=== PATIENT | female | born 1960 | race Caucasian/White ===

== ENCOUNTER 2021-09-04 08:28 | Day surgery (SDC) | payer OTHER, SELFPAY ==
[2021-08-27 07:59] VITALS: BMI 33.3
[2021-09-04] VITALS (13 sets, daily range): BP systolic 111–137; BP diastolic 60–80; PULSE 52–103; RESP 11–19; TEMP 35.7–37.1; O2SAT 93–99; BMI 33.3
[2021-09-04] MEDS: CELECOXIB 200 MG CAPSULE PO (09:14)
[2021-09-04] MEDS: PREGABALIN 75 MG CAPSULE PO (09:14)
[2021-09-04] MEDS: ACETAMINOPHEN 325 MG TABLET 975 MG PO (09:14)
[2021-09-04] MEDS: LACTATED RINGERS 1,000 ML 84 ML IV ×2 (09:25→12:00)
--- NOTE | 2021-09-04 09:28 | SUR.PREOP ---
Pt declines warm blanket/bear hugger
[2021-09-04 09:29] LABS: COVID19 -Nasal RAPID Negative (Negative)
[2021-09-04] MEDS: VANCOMYCIN 1,000 MG/200 ML PIGGYBACK 200 MG IV (09:47)
--- NOTE | 2021-09-04 10:48 | PM.PREOP ---
Pre-operative Note COVID-19 COVID-19 status: Negative Interval Note History & Physical reviewed/Exam performed by Physician: Yes Changes to H&P: No
[2021-09-04] MEDS: CEFAZOLIN 2 GM/20 ML SYRINGE IV ×2 (11:00→18:48)
--- NOTE | 2021-09-04 11:35 | SUR.OPER ---
Lateral on padded OR bed. Gel axillary roll. Arms secured on padded armboard with pillow supporting top arm. Padded hip positioner braces x4 - anterior and posterior chest and pelvis. Additional gel pad used anterior pelvis. Gel pad under bottom leg from knee to foot and secured with tape over sheet.
--- NOTE | 2021-09-04 11:56 | SUR.OPER ---
1 ML EPINEHRINE IN 50 ML NACL TO SOAK VAGINAL PACKING FOR FEMORAL CANAL
[2021-09-04] MEDS: SODIUM CHLORIDE IRRIG SOLUTION 250 ML, POVIDONE-IODINE SPONGE STICKS 1 APPLIC IRR (12:45)
[2021-09-04] MEDS: BUPIVACAINE 0.25% (PF) 60 ML, EPINEPHrine 0.3 MG INJ (13:00)
[2021-09-04] MEDS: BUPIVACAINE LIPOSOME 266 MG/20 ML VIAL INJ (13:00)
--- NOTE | 2021-09-04 13:30 | DI.RAD.S_ITS ---
PROCEDURE: XR HIP W PEL IF DONE RT 2V INDICATIONS: RT TOTAL HIP TECHNIQUE: AP pelvis and lateral view of the right hip acquired. COMPARISON: None. FINDINGS: Bones: Patient is status post right hip arthroplasty, with hardware components in expected positions. The hip joint appears congruent. The visualized bony structures appear intact. Soft tissues: Overlying postoperative changes are noted. No suspicious soft tissue densities. IMPRESSION: Postsurgical changes from right total hip arthroplasty with anatomic right hip alignment. Dictated by: Bernard Tristan M.D. on 09/04/2021 at 15:30 Approved by: Bernard Tristan M.D. on 09/04/2021 at 15:30
--- NOTE | 2021-09-04 13:46 | SUR.PHASEI ---
Stable pacu stay, pt denied pain, nausea. I am exhausted
--- NOTE | 2021-09-04 13:57 | P.OP_ITS ---
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 Non-operative management has failed and the patient has requested total hip replacement. The risks, benefits and alternatives to surgery were discussed with the patient prior to proceeding. Risks discussed included, but were not limited to, failure to relieve pain, leg length discrepancy, dislocation, stiffness, infection, nerve damage, deep venous thrombosis, pulmonary embolism, stroke, coma, heart attack, permanent paralysis and , as well as the potential need for eventual revision of the prosthetic. Surgeon: Taty Schilling Weaving Inspector: Juju Diaz Anesthesia Type: General and Spinal Operative Notes Findings: Severe right hip osteoarthritis and avascular necrosis, adequate stability Closure Type: primary Specimen(s): none sent Prosthetic devices, grafts, tissues, transplants, or devices: Schilling and Nephew size 54 R3 cup, two 6.5 mm screws, size 14 synergy standard offset, 36+ 0 Oxinium head Applied: drain(s) Estimated Blood Loss (mL): 250 Blood products transfused: none Procedure in detail: The patient was seen in the pre-operative area, where the patient identified the right hip as the operative site and this was marked with my initials. The patient received pre-operative antibiotics and was taken to the operating room and placed on the operative table in the left lateral decubitus position after satisfactory anesthesia. A night time nanny out was performed. The right leg was prepared from the ankle to the iliac crest with ChloroPrep in the usual fashion and draped through sterile drapes. The hip was approached through an approximately 20 cm incision centered over the greater trochanter and curving gently posteriorly as it went proximally. This was carried sharply to the fascia yung, which was divided and retracted with a self retaining retractor. The trochanteric bursa was excised with care being taken to avoid the sciatic nerve, which was identified and protected throughout the case. The short external rotators were incised and the capsulomuscular flap was raised and tagged for later repair. The hip was dislocated, and a femoral neck osteotomy performed approximately 15 mm above the lesser trochanter. Retractors were placed around the femur. The canal was opened with a box cutting osteotome, followed by a T handled reamer and a lateralizing reamer. The chili pepper broach was then used, followed by sequential broaching until there was good stability of the broach in the femur. Retractors were placed to expose the acetabulum. The labrum and central soft tissues were removed. Reaming was performed initially going up in 2 mm increments, then 1 mm increments until good bite was obtained with an odd sized reamer. The cup 1 mm larger than the last reamer was then inserted using the appropriate anteversion guides. It was further stabilized with two 6.5 mm screws. A trial neutral liner was placed. The broach was placed in the canal. A trial head and neck were then placed and the hip relocated and checked for leg length and stability. An intraoperative film confirmed the component position and no evidence of fracture. The patient was stable in the position of sleep, of squatting, and could be put through a range of motion with 45 degrees internal rotation without dislocation. At 90 degrees flexion, internal rotation to 70? was possible before dislocation. The stem was checked and it was noted that it did not have perfect rotational stability. I felt she was better treated with Synergy technology and the canal was reamed and broached for a size 14 synergy stem. The stem stability and hip stability was felt to be satisfactory and the appropriate components were opened, and the trials were removed. The acetabular liner was impacted into position. The final stem was then impacted into the prepared femoral canal. A brief Betadine soak was performed while trialing with head options. The hip was meticulously irrigated with normal saline. Finally the femoral head was impacted onto the stem. The acetabulum was cleared of all material and the hip relocated one final time. The capsulomuscular flap was then repaired to the greater trochanter though an awl hole using the tag sutures. The short external rotators were repaired with a nonabsorbable suture. A deep drain was placed and brought out anteriorly. The fascia yung was closed with Vicryl. The subcutaneous layer was closed with bar bed sutures and SteriStrips. A dmitry dressing was applied and the patient was taken to recovery having tolerated the procedure well. Complications: none Post-operative Condition: stable Disposition: Acute Care Plan for aftercare: The patient will be maintained on a standard total hip replacement protocol with weight bearing as tolerated and posterior hip precautions. The patient will receive Xarelto and sequential compression devices for DVT prophylaxis. The patient will be discharged home when safe for the home environment.
--- NOTE | 2021-09-04 13:59 | SUR.PHASEI ---
O2 nasal cannula added sats on room air down to 89%. Sats up to 96% with o2.
--- NOTE | 2021-09-04 14:00 | DI.RAD.S_ITS ---
PROCEDURE: XR PELVIS 1-2V INDICATIONS: prosthesis placement TECHNIQUE: Intra-operative view of the pelvis and hip acquired. COMPARISON: None. FINDINGS: Bones: Intraoperative devices prior to placement of arthroplasty prostheses are in expected positions. No fractures or suspicious bony lesions. Soft tissues: Overlying surgical retractors are present, along with other intraoperative changes. IMPRESSION: Expected appearance and alignment of intraoperative devices prior to placement of right hip arthroplasty. Dictated by: Roberto Cardona [facility] Interpreted: Bernard Tristan MD on 09/04/2021 at 13:08 Transcribed by: WENDIE on 09/04/2021 at 13:08 Approved by: Bernard Tristan M.D. on 09/04/2021 at 15:49
--- NOTE | 2021-09-04 14:14 | SUR.PHASEI ---
Pt transferred to room, left with Glendy in stable condition. 02 2l per nasal cannula, SCD's production quality analyst meléndez in reach.
[2021-09-04] MEDS: LACTATED RINGERS 1,000 ML 125 ML IV ×2 (15:24→23:39)
--- NOTE | 2021-09-04 16:16 | PT.IPTN ---
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 will f/u tomorrow.
--- NOTE | 2021-09-04 16:32 | CM.MNRNOTE ---
1408 Pt arrived to the room with belongings via bed from PACU. PT a/o x 4, sleepy. Denies pain. On o2 2 L via nasal cannula. SCDs bilateral applied and on. Right hip dressing cdi. Call light placed within reach and instructed to call for assistance, bed low locked and bed alarm on.
[2021-09-04] MEDS: ONDANSETRON 4 MG/2 ML INJ IV (16:51)
[2021-09-04] MEDS: DOCUSATE 100 MG CAPSULE PO (20:45)
[2021-09-04] MEDS: MONTELUKAST 10 MG TABLET PO (20:45)
[2021-09-04] MEDS: dilTIAZem CD 120 MG CAP PO (20:45)
[2021-09-04] MEDS: MELOXICAM 7.5 MG TABLET PO (20:45)
[2021-09-04] MEDS: ACETAMINOPHEN 325 MG TABLET 650 MG PO (23:38)
[2021-09-05 00:27] VITALS: BP 112/66; PULSE 78; RESP 18; TEMP 36.1; O2SAT 98
[2021-09-05] MEDS: CEFAZOLIN 2 GM/20 ML SYRINGE IV (03:07)
[2021-09-05 05:00] VITALS: BP 101/57; PULSE 56; RESP 18; TEMP 36.1; O2SAT 97
[2021-09-05 05:44] LABS: Hematocrit 33.2 % (36-46); Hemoglobin 11.3 g/dL (12.0-16.0)
[2021-09-05] MEDS: DOCUSATE 100 MG CAPSULE PO (08:27)
[2021-09-05] MEDS: LORATADINE 10 MG TABLET PO (08:27)
[2021-09-05] MEDS: MELOXICAM 7.5 MG TABLET PO (08:27)
[2021-09-05] MEDS: ACETAMINOPHEN 325 MG TABLET 650 MG PO (08:27)
[2021-09-05 08:33] VITALS: BP 122/62; PULSE 57; RESP 17; TEMP 36.3; O2SAT 96
--- NOTE | 2021-09-05 08:35 | PM.DS.1 ---
History of Present Illness History of Present Illness Date Patient Seen: 09/05/21 Time Patient Seen: 08:35 Chief complaint: Hip pain Narrative: Patient was nauseous and had a couple episodes of vomiting yesterday evening. Slightly nauseous this morning. No vomiting. Pain is mild. Otherwise without complaints. Discharge Providers Provider Discharge Date: 09/05/21 Primary care physician: MELISSA Alvarado Consults: 09/04/21 09:00 Consult to Anesthesiology Routine Comment: Consulting Provider: Anesthesiologist Reason for consultation: Regional block for post operative pain control 09/04/21 14:00 Consult to Discharge Planning Routine Comment: Consult to Physical Therapy Evaluate & Treat Comment: Physician Instructions: post op GEETA protocol Consult to Respiratory Therapy Evaluate & Treat Comment: Physician Instructions: Evaluate and treat Discharge provider: Chavez Ace PA-C Summary Hospital Course Discharge Diagnosis: Severe right hip osteoarthritis and AVN of the femoral head Hospital Course: Right total hip arthroplasty posterior approach Same procedure as scheduled: Yes Indications: The patient has had progressively worsening right hip pain with radiographic changes consistent with arthritis. Non-operative management has failed and the patient has requested total hip replacement. The risks, benefits and alternatives to surgery were discussed with the patient prior to proceeding. Risks discussed included, but were not limited to, failure to relieve pain, leg length discrepancy, dislocation, stiffness, infection, nerve damage, deep venous thrombosis, pulmonary embolism, stroke, coma, heart attack, permanent paralysis and , as well as the potential need for eventual revision of the prosthetic. Surgeon: Taty Schilling Printing Engineer: Juju Diaz Anesthesia Type: General and Spinal Operative Notes Findings: Severe right hip osteoarthritis and avascular necrosis, adequate stability Closure Type: primary Specimen(s): none sent Prosthetic devices, grafts, tissues, transplants, or devices: Schilling [employer] Nephew size 54 R3 cup, two 6.5 mm screws, size 14 synergy standard offset, 36+ 0 Oxinium head Applied: drain(s) Estimated Blood Loss (mL): 250 Blood products transfused: none Patient admitted to the hospital for right total hip arthroplasty, posterior approach. Patient consented to the same. Patient taken operating room underwent right total hip arthroplasty on September 04, 2021. Patient back in her room recovering well as in stable condition. Patient to mobilize with physical therapy this morning. She will be discharged home after physical therapy if safe for home environment. Exam Vital Signs (past 8 hours): - 09/05/21 05:00 09/05/21 08:33 Temperature 97.0 F L 97.4 F L Pulse Rate 56 L 57 L Respiratory Rate 18 17 Blood Pressure 101/57 L 122/62 Pulse Oximetry 97 96 Oxygen Delivery Method Room Air Oxygen Flow Rate 0 Narrative Exam Narrative: 61-year-old female resting comfortably in bed in no apparent distress right hip dressing is clean dry and intact. Neurovascular status is intact to the bilateral lower extremities. Objective Labs Result Diagrams: 09/05/21 05:07 Labs: Laboratory Results - last 24 hr 09/04/21 09/05/21 08:35 05:07 Hgb 11.3 L Hct 33.2 L SARS-CoV-2 (PCR) Negative [facility] Medical History Anesthesia Anxiety about health Asthma Atrial flutter DVT (deep venous thrombosis) (2020) History of cardioversion (2017) Mild sleep apnea Pre-diabetes Seasonal allergies SVT (supraventricular tachycardia) Surgical History Hx of dilation and curettage S/P left unicompartmental knee replacement (2020) Social History household members: none Smoking Status: Never smoker alcohol intake: current Discharge Assessment & Plan Assessment and Plan Assessment: Patient progressing as expected status post right total hip arthroplasty, posterior approach Plan of Treatment: Mobilize with physical therapy Posterior hip precautions Multimodal pain management Discharge home today in stable condition Discharge Plan Discharge Plan Patient Disposition: Home Discharge orders & Medications Discharge Orders: Discharge (Order); Ordered 09/05/21 Ordered By: Chavez Ace Prescriptions: New acetaminophen 325 mg Tablet 650 mg PO Q6HR Qty: 60 0RF polyethylene glycol 3350 17 gram Powder In Packet 17 gm PO DAILY PRN (Reason: Constipation) Qty: 20 0RF ondansetron 4 mg Tablet,Disintegrating 4 mg PO Q4HR PRN (Reason: Nausea) Qty: 20 0RF oxycodone 5 mg Tablet 5 mg PO Q3HR PRN (Reason: Pain, Moderate (4-6)) Qty: 40 0RF Xarelto 20 mg tablet 20 mg PO DAILY Qty: 42 0RF Rx Instructions: must administer with evening meal, first dose this evening Continued meloxicam 7.5 mg Tablet 7.5 mg PO BID 0RF diltiazem HCl 120 mg Capsule,Extended Release 24hr 120 mg PO BEDTIME 0RF montelukast 10 mg Tablet 10 mg PO BEDTIME 0RF loratadine [Allerclear] 10 mg Tablet 10 mg PO DAILY 0RF Discontinued acetaminophen 500 mg Tablet 1,000 mg PO QD-BID PRN (Reason: Pain) 0RF Follow up/Referrals: Nyla Mitchell ARNP [Primary Care Provider] - Taty Schilling MD [Physician] - (2 weeks) Diet/Activity/Treatments Diet: Diet as Tolerated Activity: Weight-bearing as tolerated, posterior hip precautions Cold/Heat Therapy: Ice to hip as needed Skin/Wound/Dressing Care Report to your healthcare provider any signs of infection, such as:: chills, fever, increased pain, unusual drainage and unusual redness Dressing: Keep dressing clean and dry, follow-up dmitry instructions, contact office if any dressing concerns Visit Report/Discharge Packet Instructions: DI for Hip Replacement Stand Alone Forms: Patient Portal/API, Surgery Discharge Discharge Data Primary Care Provider: Nyla Mitchell Attending Provider: Taty Schilling Quality VTE Deep Vein Thrombosis/Pulmonary Embolism Present on Admission: No
--- NOTE | 2021-09-05 09:30 | PT.IIE ---
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) Surgery Performed Operation Date: 09/04/21 10:45 Actual Procedures p Total Hip Arthroplasty(Right) - Taty Schilling MD Medical History (Last Reviewed 09/05/21 @ 13:13 by Chavez Ace PA-C) Anesthesia Anxiety about health Asthma Atrial flutter DVT (deep venous thrombosis) (2020) History of cardioversion (2017) Mild sleep apnea Pre-diabetes Seasonal allergies SVT (supraventricular tachycardia) Physical Therapy Inpatient Evaluation/Re-Eval M1 PT/OT-IP Prior Functional Status Start: 09/04/21 16:12 Freq: NEEDED Status: Discharge Protocol: Document 09/05/21 09:30 AB (Rec: 09/05/21 13:20 AB [email or web address]) Medical Review Prior Functional Status Medical History Reviewed Yes Communication able to make needs known Mobility and Gait pt's friend in room and provided info of pt's home set up and PLOF: stated that pt is modified independent with all mobilities and ambulation using 2 SPC at all times Social History Household Members none Living Arrangements House Number of Floors (Floors) One Floor Number of Stairs To Enter/Railing? 1 step to enter 1 step down to sunken living room Home Environment High Toilet,Walk in Shower Home Equipment Front Wheel Walker,Straight Cane,Shower Seat without Backrest,Hand Held Shower Additional Social History Comment pt's friend will be staying and assisting pt for ~ 2 weeks has a safety frame around the toilet M2 PT-IP Current Condition Start: 09/04/21 16:12 Freq: NEEDED Status: Discharge Protocol: Document 09/05/21 09:30 AB (Rec: 09/05/21 13:20 AB [email or web address]) Physical Therapy Current Condition Current Condition Evaluation Date 09/05/21 Treatment Diagnosis s/p R GEETA posterior approach; difficulty in walking Onset Date 09/04/21 M3 PT-IP Subjective Start: 09/04/21 16:12 Freq: NEEDED Status: Discharge Protocol: Document 09/05/21 09:30 AB (Rec: 09/05/21 13:20 AB [email or web address]) Subjective Physical Therapy Visit Type Type Initial Evaluation Visit Start Time 09:30 Visit Stop Time 10:06 Total Visit Minutes 36 Number of EPILEPSY PHYSICIAN Visits 0 Physical Therapy Visit Comments Patient Comments agreeable to do PT Therapy Pain Assessment Pain When Pain Assessed At Rest Pain Present Pain Present Pain Reported Location Right Hip Intensity 2 Scale Used Numeric (0 - 10) Pain Management Techniques Apply Cold,Modification of Treatment,Re-positioning, Timing of Activity with Medications M4 PT-IP Mobility and Gait Start: 09/04/21 16:12 Freq: NEEDED Status: Discharge Protocol: Document 09/05/21 09:30 AB (Rec: 09/05/21 13:20 AB [id number]) PT-Bed Mobility Assessment Supine to Sit Supine to Sit Standby Assistance Sit to Supine Sit to Supine Standby Assistance PT-Transfer Assessment Sit to and From Stand Sit to and from Stand Standby Assistance Equipment Transfer Assistive Device Gait Belt,Front Wheeled Walker Orthotic/Prosthetic Devices or Brace: No Transfers Transfer Destination Bed Transfer Technique ambulated Transfer Ability Level of Assist Standby Assistance,Contact Guard Assistance,1 Person Assistance,Use of Upper Extremities Comments Mobility Comments pt seated on chair and agreed to do PT. pt's friend/ caregiver in room with pt. educated pt and friend regarding posterior hip precautions and pt was able to recall. pt completed sit to stand from the chair CGA and ambulated in room using FWW ~ 20 ft SBA to CGA. completed sit<>supine SBA. educated caregiver on how to assist pt if needed and understood. caregiver training conducted. educated friend on how to use safety belt and how to assist pt. friend was able to put safety belt on pt and assisted pt with sit to stand cGA and ambulated pt in the hallway towards platform step using FWW CGA. pt completed up/down platform step using FWW with friend assisting and completed safely. pt repeated 2 sets of steps. pt ambulated more ~ 100 ft using FWW SBA to CGA with friend assisting and back to her room. pt sat on chair . positioned with call light and table placed within reach. pt and friend without any other concerns. Gait Assessment Gait Gait Assistance Required: Standby Assistance,Contact Guard Assist Distance (Feet) 100 Able to Maintain Weight Bearing Status Yes During Gait Assistive Devices Assistive Device Gait Belt,Front Wheeled Walker Orthotic/Prosthetic Devices or Brace: No Gait Deviations General Gait Pattern Decreased Stride Length, Decreased Feet Clearance Factors Limiting Gait Function Factors Limiting Gait Function Decreased Activity Tolerance, Decreased Strength,Limited Range of Motion,Pain,Poor Balance,Poor Safety Awareness Stair Climbing Assessment Evaluation Level of Assist On Stairs Contact Guard Assistance Devices Stair Climbing Assistive Devices Front Wheel Walker Technique/Endurance Stair Climbing Direction Ascend and Descend Stair Climbing Technique Step to Step Number of Steps Climbed 1 Query Text: Stair Climbing Set # Repetitions (reps) 2 PT-Balance Assessment Sitting Balance and Reactions Static Sitting Balance Ability Good Dynamic Sitting Balance Ability Good Standing Balance and Reactions Static Standing Balance Ability Fair Dynamic Standing Balance Ability Fair Device Used FWW M5 PT-IP Objective Assessments Start: 09/04/21 16:12 Freq: NEEDED Status: Discharge Protocol: Document 09/05/21 09:30 AB (Rec: 09/05/21 13:20 AB [email or web address]) Orientation Orientation/Cognition Level of Alertness Alert Orientation Name,Age,Birthday,Month,Date, Year,Day of Week,Place, Situation Language Function Ability No Deficits Noted Safety Awareness Understands Safety Issues Memory Description No Deficits Noted Strength Lower Extremity Strength Assessment Right Impaired Hip 3+/5 Knee 4-/5 Coordination Assessment Gross Coordination Gross Coordination WNL Sensation Assessment Sensation Gross Sensation WNL Muscle Tone Muscle Tone WNL Yes M6 PT-IP Treatment Start: 09/04/21 16:12 Freq: NEEDED Status: Discharge Protocol: Document 09/05/21 09:30 AB (Rec: 09/05/21 13:20 AB [email or web address]) Physical Therapy Treatment Education Education Provided Precautions,Weight Bearing Status,Post-Op Packet,Safety M7 PT-IP Assessment and Plan Start: 09/04/21 16:12 Freq: NEEDED Status: Discharge Protocol: Document 09/05/21 09:30 AB (Rec: 09/05/21 13:20 [email or web address]) PT Summary Assessment and Plan Potential Rehabilitation Potential Good Status of Condition at Evaluation Stable Summary Impairments Pain,ROM,Strength,Balance, Coordination,Sensation,Tone, Cognition,Bed Mobility, Transfers,Gait,Activity Tolerance Assessment Summary pt requiring SBA to CGA with mobility. caregiver training conducted and friend was able to assist pt safely. pt plans to go home today and has outpt PT set up. Goals Bed Mobility Goal Independent Transfer Goal Independent,Front Wheeled Walker Gait Goal Independent,Front Wheel Walker Gait Distance 250 Other Goals up/down 1 step using FWW mod I Days to Meet Goals 5 Frequency of Treatment Frequency Of Treatment Twice a Day Treatment Plan Physical Therapy Treatment Plan Bed Mobility Training,Transfer Training,Gait Training, Therapeutic Exercise,Balance Retraining,Post Op Education, Discharge Planning,Hot or Cold Pack,Neuromuscular Re-ed, Coordination Retraining,Manual Therapy Precautions Posterior Hip Precautions No Hip Flexion > 90 degrees,No Hip Internal Rotation,No Hip Adduction Weight Bearing Status Weight Bearing Status Weight Bear as Tolerated Allowed Weight Bearing Amount (enter % RLE WBAT or #) (%) Recommendations To Nursing Amount of Assist Needed 1 Person Assist Discharge Recommendations PT Discharge Recommendations Home with Assistance, Outpatient PT Transportation Needs at Discharge Private Vehicle
--- NOTE | 2021-09-05 11:06 | PC.RNWOUND ---
Right hip surgical site aquacel dressing gently removed. Surgical incision is 19.5cm in length. There is a small margin of ecchymosis to periwound, no erythema, swelling, or drainage. SAE negative pressure wound dressing is applied. Patient tolerates all cares well and without complaint. Verbalizes understanding about Sae dressing and bathing/ to leave intact.
--- NOTE | 2021-09-05 11:18 | PC.NURSE ---
Pt is dressed and ready for discharge home with Friend Mallory. IV and HV have been removed and Aquacell dsg was removed and changed to a SAE dressing. Went over d/c instructions with Pt and Friend-discussed d/c meds, time of last dose, reviewed stroke education, reminded Pt to follow posterior hip precautions, encouraged Pt to drink fluids to prevent constipation or dehydration, no driving if taking narcotics, use bowel meds as ordered to prevent constipation, do not exceed 3000mg of Acetaminophen in 24 hours, and follow up. Pt denies further questions and will be taken out via w/c by COMPUTER NETWORKING INSTRUCTOR to POV with Friend and all belongings. Pharmacy to review discharge prescriptions prior to leaving and Pt was given fresh ice water and and new ice pack for pain relief. Encouraged Pt to remember to perform ankle waves as frequently as possible to prevent DVT. Pt denied further questions.
== END 2021-09-05 11:51 | disposition home or self-care (01) ==
LOC: OR 08:33 → AC 08:36
PROVIDERS: PCP Nurse Practitioner Family; Referring Provider Orthopaedic Surgery; Visit Provider Orthopaedic Surgery
PROC: 0SR90JZ Replacement of Right Hip Joint with Synthetic Substitute, Open Approach (ICD-10-PCS; CPT 27130; principal; 2021-09-04 10:45)
DX: M87.051 Idiopathic aseptic necrosis of right femur (principal); M16.11 Unilateral primary osteoarthritis, right hip; J45.909 Unspecified asthma, uncomplicated; E66.9 Obesity, unspecified; Z68.32 Body mass index [BMI] 32.0-32.9, adult; Z20.822 Contact with and (suspected) exposure to COVID-19
CPT/HCPCS: 27130; 36415; 72170; 73502; 85014; 85018; 87635; 97161; 97530; C1776; C9803; C9290; J0171; J0690; J1100; J2250; J2274; J2405; J2704; J3010

== ENCOUNTER → 2022-02-18 12:45 | Outpatient (CLI) | payer OTHER, SELFPAY ==
[2021-09-04 15:11] VITALS: BMI 33.3
[2022-02-18 13:53] LABS: COVID19 -Nasal RAPID Negative (Negative)
== END ==
PROVIDERS: PCP Nurse Practitioner Family; Referring Provider Orthopaedic Surgery; Visit Provider Orthopaedic Surgery
DX: Z20.822 Contact with and (suspected) exposure to COVID-19 (principal)
CPT/HCPCS: 87635; C9803

== ENCOUNTER 2022-02-19 09:32 | Day surgery (SDC) | payer OTHER, SELFPAY ==
[2021-09-04 15:11] VITALS: BMI 33.3
[2022-02-12 07:43] VITALS: BMI 32.8
[2022-02-19] VITALS (13 sets, daily range): BP systolic 113–140; BP diastolic 62–86; PULSE 53–76; RESP 11–28; TEMP 36.2–36.8; O2SAT 93–99; BMI 32.8
--- NOTE | 2022-02-19 | DI.RAD.S_ITS ---
PROCEDURE: XR HIP W PEL IF DONE LT 2V INDICATIONS: POST OP LEFT TOTAL HIP TECHNIQUE: AP pelvis and lateral view of the left hip acquired. COMPARISON: None. FINDINGS: Bones: Patient is status post bilateral hip arthroplasties, with hardware components in expected positions. The hip joint appears congruent. The visualized bony structures appear intact. Soft tissues: Overlying postoperative changes are noted. No suspicious soft tissue densities. IMPRESSION: Expected postsurgical change for left hip arthroplasty. Dictated by: Irish Cruz MD, PhD on 02/19/2022 at 14:41 Approved by: Irish Cruz MD, PhD on 02/19/2022 at 14:41
[2022-02-19] MEDS: LACTATED RINGERS 1,000 ML 42 ML IV ×2 (10:28→12:22)
[2022-02-19] MEDS: VANCOMYCIN 1,000 MG/200 ML PIGGYBACK 200 MG IV (10:42)
--- NOTE | 2022-02-19 11:00 | DI.RAD.S_ITS ---
PROCEDURE: XR PELVIS 1-2V INDICATIONS: INNER OP HIP TECHNIQUE: Intra-operative view of the pelvis and hip acquired. COMPARISON: [facility], CR, XR PELVIS 1-2V, 09/04/2021, 12:12. FINDINGS: Bones: Intraoperative devices prior to placement of left hip arthroplasty prostheses are in expected positions. No fractures or suspicious bony lesions. Soft tissues: Overlying surgical retractors are present, along with other intraoperative changes. IMPRESSION: Intraoperative devices prior to placement left hip arthroplasty prosthesis in expected position. Dictated by: Irish Cruz MD, PhD on 02/19/2022 at 14:40 Approved by: Irish Cruz MD, PhD on 02/19/2022 at 14:40
[2022-02-19] MEDS: ACETAMINOPHEN 325 MG TABLET 975 MG PO (11:02)
--- NOTE | 2022-02-19 11:06 | PM.PREOP ---
Pre-operative Note COVID-19 COVID-19 status: Negative Interval Note History & Physical reviewed/Exam performed by Physician: Yes Changes to H&P: No
--- NOTE | 2022-02-19 11:07 | P.OP_ITS ---
Operative Date/Time/Diagnoses Date of procedure: 02/19/22 Time of procedure: 11:30 Pre-op diagnosis: left hip oa/ avn Post-op diagnosis: same Procedure & Clinicians Procedure: Left total hip arthroplasty posterior approach Same procedure as scheduled: Yes Indications: The patient has had progressively worsening left hip pain with radiographic changes consistent with arthritis. Non-operative management has failed and the patient has requested total hip replacement. The risks, benefits and alternatives to surgery were discussed with the patient prior to proceeding. Risks discussed included, but were not limited to, failure to relieve pain, leg length discrepancy, dislocation, stiffness, infection, nerve damage, deep venous thrombosis, pulmonary embolism, stroke, coma, heart attack, permanent paralysis and , as well as the potential need for eventual revision of the prosthetic. Surgeon: Taty Schilling Coding Quality Coordinator: Chavez Ace Anesthesia Type: General Operative Notes Findings: Severe left hip avascular necrosis, adequate stability Closure Type: primary Specimen(s): none sent Prosthetic devices, grafts, tissues, transplants, or devices: [employer] Synergy size 15 standard offset stem, 54 mm R3 cup, neutral poly liner, 36 x +0 Oxinium head, two 6.5 mm screws Estimated Blood Loss (mL): 250 Blood products transfused: none Procedure in detail: The patient was seen in the pre-operative area, where the patient identified the left hip as the operative site and this was marked with my initials. The patient received pre-operative antibiotics and was taken to the operating room and placed on the operative table in the right lateral decubitus position after satisfactory anesthesia. A multimedia production assistant out was performed. The left leg was prepared from the ankle to the iliac crest with ChloroPrep in the usual fashion and draped through sterile drapes. The hip was approached through an approximately 20 cm incision centered over the greater trochanter and curving gently posteriorly as it went proximally. This was carried sharply to the fascia yung, which was divided and retracted with a self retaining retractor. The trochanteric bursa was excised with care being taken to avoid the sciatic nerve, which was identified and protected throughout the case. The short external rotators were incised and the capsulomuscular flap was raised and tagged for later repair. The hip was dislocated, and a femoral neck osteotomy performed approximately 15 mm above the lesser trochanter. Retractors were placed around the femur. The canal was opened with a box cutting osteotome, followed by a T handled reamer and a lateralizing reamer. The chili pepper broach was then used, followed by sequential broaching until there was good stability of the broach in the femur. Retractors were placed to expose the acetabulum. The labrum and central soft tissues were removed. Reaming was performed initially going up in 2 mm increments, then 1 mm increments until good bite was obtained with an odd sized reamer. The cup 1 mm larger than the last reamer was then inserted using the appropriate anteversion guides. It was further stabilized with 2 screws. A trial neutral liner was placed. The broach was placed in the canal. A trial head and neck were then placed and the hip relocated and checked for leg length and stability. An intraoperative film confirmed the component position and no evidence of fracture. The patient was stable in the position of sleep, of squatting, and could be put through a range of motion with 45 degrees internal rotation without dislocation. At 90 degrees flexion, internal rotation to 70? was possible before dislocation. This was felt to be satisfactory and the appropriate components were opened, and the trials were removed. The acetabular liner was impacted into position. The final stem was then impacted into the prepared femoral canal. A brief Betadine soak was performed while trialing with head options. The hip was meticulously irrigated with normal saline. Finally the femoral head was impacted onto the stem. The acetabulum was cleared of all material and the hip relocated one final time. The capsulomuscular flap was then repaired to the greater trochanter though an awl hole using the tag sutures. The short external rotators were repaired with a nonabsorbable suture. A deep drain was placed and brought out anteriorly. The fascia yung was closed with Vicryl. The subcutaneous layer was closed with barbed sutures and SteriStrips. An Aquacel Ag dressing was applied and the patient was taken to recovery having tolerated the procedure well. Complications: none Post-operative Condition: stable Disposition: Acute Care Plan for aftercare: The patient will be maintained on a standard total hip replacement protocol with weight bearing as tolerated and posterior hip precautions. The patient will receive Xarelto and sequential compression devices for DVT prophylaxis. The patient will be discharged home when safe for the home environment.
[2022-02-19] MEDS: SCOPOLAMINE 1 PATCH TOP (11:19)
[2022-02-19] MEDS: CEFAZOLIN 2 GM/100 ML PREMIX 100 ML IV ×2 (11:37→21:09)
[2022-02-19] MEDS: BUPIVACAINE LIPOSOME 266 MG/20 ML VIAL INJ (12:11)
[2022-02-19] MEDS: BUPIVACAINE 0.5% W/ EPI (PF) 30 ML VIAL INJ (12:12)
--- NOTE | 2022-02-19 14:23 | SUR.PHASEI ---
Transferred patient to ICU 229 in stable condition; VSS; denies pain or nausea; responsive to verbal; GCS 15. No distress at transfer.
[2022-02-19] MEDS: ONDANSETRON 4 MG/2 ML INJ IV (14:49)
[2022-02-19] MEDS: LACTATED RINGERS 1,000 ML 125 ML IV ×2 (14:51→21:51)
--- NOTE | 2022-02-19 15:49 | PC.ADMIT ---
[email or web address] Admission Note: The patient,Danielle Vaz,61 y/o, was given written information regarding hospital policies, unit procedures and contact persons. Pt arrived via bed from PACU, bedside report received from Babita MARTINO, Pt sleepy and nauseous, but rousable to voice. Medicated with zofran on arrival, dmitry drain and hemovac in place with minimal drainage. Pt oriented to room and call light system, bed low and locked, call light within reach, will continue to monitor Patient's smoking status: Never smoker. Vital Signs - 8 hr 02/19/22 10:09 02/19/22 13:44 02/19/22 13:49 Temperature 98.1 F 98.3 F Pulse Rate 62 76 66 Respiratory Rate 16 28 H 19 Blood Pressure 140/86 131/78 122/73 Pulse Oximetry 99 95 96 Oxygen Delivery Method Room Air Nasal Cannula Nasal Cannula Oxygen Flow Rate 2 2 02/19/22 13:53 02/19/22 13:58 02/19/22 14:08 Temperature Pulse Rate 70 65 62 Respiratory Rate 12 12 11 L Blood Pressure 114/75 116/68 113/67 Pulse Oximetry 95 95 96 Oxygen Delivery Method Nasal Cannula Nasal Cannula Nasal Cannula Oxygen Flow Rate 2 2 2 02/19/22 14:13 02/19/22 14:30 02/19/22 15:00 Temperature 97.2 F L Pulse Rate 60 58 L 53 L Respiratory Rate 11 L 13 15 Blood Pressure 120/73 128/73 124/71 Pulse Oximetry 96 98 98 Oxygen Delivery Method Nasal Cannula Oxygen Flow Rate 2 2 2
[2022-02-19] MEDS: OXYCODONE IR 5 MG TABLET PO (16:38)
[2022-02-19] MEDS: IBUPROFEN 400 MG TABLET PO (18:28)
[2022-02-19] MEDS: ACETAMINOPHEN 325 MG TABLET 650 MG PO (18:29)
[2022-02-19] MEDS: DOCUSATE 100 MG CAPSULE PO (21:09)
[2022-02-19] MEDS: dilTIAZem CD 120 MG CAP PO (21:09)
[2022-02-19] MEDS: MONTELUKAST 10 MG TABLET PO (21:09)
[2022-02-19] MEDS: OXYCODONE IR 10 MG TABLET PO (21:42)
[2022-02-20] VITALS: BP 116/81; PULSE 61
--- NOTE | 2022-02-20 02:56 | PC.NURSE ---
Patient requesting assistance up tp BSC. Patient using walker and standby assistance with good technique. Patient reports recent recovery four months ago from right total hip. Left hip incision with small amounts of sero-sanguinous drainage. Hemovac and Ladan drains intact. Patient medicated with oxycodone per EMAR and ice packs renewed. LLE with good CMS. Patient repositioning self in bed tp right side. Patient denies further nausea with getting OOB. Scopolamine patch in place. Patient sleeping after analgesia administered.
[2022-02-20 04:00] VITALS: BP 110/57; PULSE 52; RESP 19; TEMP 36.3; O2SAT 96
[2022-02-20 04:52] LABS: Hematocrit 32.8 % (36-46); Hemoglobin 11.1 g/dL (12.0-16.0)
[2022-02-20] MEDS: CEFAZOLIN 2 GM/100 ML PREMIX 100 ML IV (04:54)
[2022-02-20] MEDS: IBUPROFEN 400 MG TABLET PO (05:42)
[2022-02-20] MEDS: ACETAMINOPHEN 325 MG TABLET 650 MG PO ×2 (05:43→10:26)
--- NOTE | 2022-02-20 08:10 | P.PN_ITS ---
Subjective Subjective Date Patient Seen: 02/20/22 Exam Vital Signs (past 8 hours): - 02/20/22 04:00 Temperature 97.4 F L Pulse Rate 52 L Respiratory Rate 19 Blood Pressure 110/57 L Pulse Oximetry 96 Oxygen Delivery Method Room Air Oxygen Flow Rate 0 Objective Labs Result Diagrams: 02/20/22 03:55 Labs: Laboratory Results - last 24 hr 02/19/22 02/20/22 14:49 03:55 Hgb 11.1 L Hct 32.8 L Nasal Screen MRSA (PCR) Negative for mrsa [facility] Medical History (Updated 02/12/22 @ 07:43 by Mary Cox RN) Anesthesia Anxiety about health Asthma Atrial flutter (2017) DVT (deep venous thrombosis) (2020) History of cardioversion (2017) Mild sleep apnea Pre-diabetes Seasonal allergies SVT (supraventricular tachycardia) Surgical History (Updated 02/11/22 @ 10:01 by Mary Cox RN) History of total right hip replacement (09/04/21) Hx of dilation and curettage S/P left unicompartmental knee replacement (2020) Social History household members: none Smoking Status: Never smoker alcohol intake: current Assessment & Plan Post-op Postoperative Procedures: Procedures Operation Date: 02/19/22 11:15 Actual Procedure Side Surgeon p Total Hip Arthroplasty Left Taty Schilling MD
--- NOTE | 2022-02-20 08:28 | P.DS_ITS ---
History of Present Illness History of Present Illness Date Patient Seen: 02/20/22 Time Patient Seen: 08:29 Chief complaint: Left GEETA Narrative: Patient is complaining of moderate left hip pain this morning. Her nausea has resolved overnight. She is a history of a DVT and will therefore be placed on Xarelto postoperatively for DVT prophylaxis. Overall she is feeling well. She is not worked with physical therapy yet. Discharge Providers Provider Discharge Date: 02/20/22 Primary care physician: MELISSA Alvarado Consults: 02/05/22 09:09 Consult to Anesthesiology Routine Comment: Consulting Provider: Anesthesiologist Reason for consultation: Regional block for post operative pain control 02/19/22 14:23 Consult to Discharge Planning Routine Comment: Consult to Physical Therapy Evaluate & Treat Comment: Physician Instructions: post op GEETA protocol Discharge provider: Juju Diaz PA-C Summary Hospital Course Discharge Diagnosis: Left hip avascular necrosis and osteoarthritis Hospital Course: Operative Date/Time/Diagnoses Date of procedure: 02/19/22 Time of procedure: 11:30 Procedure & Clinicians Procedure: Left total hip arthroplasty posterior approach Same procedure as scheduled: Yes Indications: The patient has had progressively worsening left hip pain with radiographic changes consistent with arthritis. Non-operative management has failed and the patient has requested total hip replacement. The risks, benefits and alternatives to surgery were discussed with the patient prior to proceeding. Risks discussed included, but were not limited to, failure to relieve pain, leg length discrepancy, dislocation, stiffness, infection, nerve damage, deep venous thrombosis, pulmonary embolism, stroke, coma, heart attack, permanent paralysis and , as well as the potential need for eventual revision of the prosthetic. Surgeon: Taty Schilling [employer]estock [employer]: Chavez Ace Anesthesia Type: General Operative Notes Findings: Severe left hip avascular necrosis, adequate stability Closure Type: primary Specimen(s): none sent Prosthetic devices, grafts, tissues, transplants, or devices: [employer] Synergy size 15 standard offset stem, 54 mm R3 cup, neutral poly liner, 36 x +0 Oxinium head, two 6.5 mm screws Estimated Blood Loss (mL): 250 Blood products transfused: none Status at Discharge Cognitive/behavioral status at discharge: at baseline, oriented Functional status at discharge: uses cane/walker Overall status at discharge: patient is progressing back to baseline Exam Vital Signs (past 8 hours): - 02/20/22 04:00 Temperature 97.4 F L Pulse Rate 52 L Respiratory Rate 19 Blood Pressure 110/57 L Pulse Oximetry 96 Oxygen Delivery Method Room Air Oxygen Flow Rate 0 Narrative Exam Narrative: Pleasant 61-year-old female, resting comfortably in bed, no acute distress. Left hip dressing is clean, dry, intact. Bilateral lower extremity: Motor functions are grossly intact, sensation is grossly intact to light touch, calves are soft and nontender to palpation. Objective Labs Result Diagrams: 02/20/22 03:55 Labs: Laboratory Results - last 24 hr 02/19/22 02/20/22 14:49 03:55 Hgb 11.1 L Hct 32.8 L Nasal Screen MRSA (PCR) Negative for mrsa [facility] Medical History Anesthesia Anxiety about health Asthma Atrial flutter (2017) DVT (deep venous thrombosis) (2020) History of cardioversion (2017) Mild sleep apnea Pre-diabetes Seasonal allergies SVT (supraventricular tachycardia) Surgical History History of total right hip replacement (09/04/21) Hx of dilation and curettage S/P left unicompartmental knee replacement (2020) Social History household members: none Smoking Status: Never smoker alcohol intake: current Discharge Assessment & Plan Assessment and Plan Assessment: -stable status post left total hip arthroplasty, posterior approach -history of a DVT Plan of Treatment: -mobilize with PT. Maintain posterior hip precautions x6 weeks. Weightbearing as tolerated with front wheel walker cane -continue with multimodal pain management. -begin Xarelto on 02/20 10:00 p.m. for DVT prophylaxis. Patient already has prescription at home -DC Hemovac drain today -DC home once cleared by PT Discharge Plan Discharge Plan Patient Disposition: Home Discharge orders & Medications Discharge Orders: Discharge (Order); Ordered 02/20/22 Ordered By: Juju Diaz Prescriptions: New oxycodone 5 mg Tablet 5 mg PO Q3HR PRN (Reason: Pain, Moderate (4-6)) Qty: 42 0RF docusate sodium 100 mg Capsule 100 mg PO BID PRN (Reason: Constipation from narcotic pain meds) Qty: 20 0RF Xarelto 10 mg tablet 10 mg PO DAILY Qty: 45 0RF Rx Instructions: To prevent blood clots, complete all tablets from original prescription Continued diltiazem HCl 120 mg Capsule,Extended Release 24hr 120 mg PO BEDTIME loratadine [Allerclear] 10 mg Tablet 10 mg PO DAILY acetaminophen 325 mg Tablet 650 mg PO Q6HR Qty: 60 0RF polyethylene glycol 3350 17 gram Powder In Packet 17 gm PO DAILY PRN (Reason: Constipation) Qty: 20 0RF montelukast 10 mg Tablet 10 mg PO BEDTIME Follow up/Referrals: Nyla Mitchell ARNP [Primary Care Provider] - Taty Schilling MD [Physician] - As previously scheduled (Follow up w/ Dr Schilling on 03/04/2022 @ 2:[address] [facility] office in [place].) Diet/Activity/Treatments Diet: Diet as Tolerated Activity: Weight bearing as tolerated to left leg. Posterior hip precautions x6 weeks. Other treatments: Medications: -Xarelto once daily to prevent blood clots. -OTC Tylenol 500 mg 1 tablet every 4 hours as needed for pain/fever. Max 6 tablets per day. -Oxycodone 5 mg take 1-2 tablets every 4 hours as needed for moderate-severe pain (narcotic pain medication). -As needed medications: -Ducolax and /or MiraLax as needed for constipation from narcotic pain medications. -Pepcid AC as needed for stomach upset (usually from aspirin or ibuprofen). Dressing/Wound care: -Keep Aquacell dressing in place until postoperative follow-up office visit. -Okay to shower. Keep wound out of direct water stream. No soaking or submerging until all the scabs fall off (approximately 6 weeks). -No lotions, ointments, or scar creams directly to the incision until the wound is healed (4-6 weeks), -Please call the office if dressing becomes wet, soiled, or saturated. Activities: -Maintain posterior hip precautions x6 weeks. -Weight-bearing as tolerated. Use front wheeled walker, and progress to cane when safe. -Continue with home exercises as directed by your physical therapist. -Elevate ?toes above the nose if you have significant swelling in your lower leg. (A wedge pillow is easiest.) -Ice your incision as needed for pain/inflammation/swelling. Protect your skin with a folded pillowcase. Follow-up: -Follow-up with your surgeon or PA in the office in 10-14 days after surgery. -Follow-up with your surgeon 6 weeks postoperatively. Call the office if you have chest pain, shortness of breath, significant swelling that will not resolve with elevating, fever over 101?, significantly worsening pain, or are concerned you might need to go to the Emergency Room. [facility]: [phone] Skin/Wound/Dressing Care Report to your healthcare provider any signs of infection, such as:: chills, fev er, night sweats, unusual drainage and unusual redness Visit Report/Discharge Packet Instructions: DI for Hip Replacement Stand Alone Forms: Surgery Discharge Discharge Data Primary Care Provider: Nyla Mitchell Attending Provider: Taty Schilling
[2022-02-20 08:29] VITALS: BP 107/54; PULSE 58; RESP 17; TEMP 36.6; O2SAT 94
[2022-02-20] MEDS: DOCUSATE 100 MG CAPSULE PO (08:55)
[2022-02-20] MEDS: LORATADINE 10 MG TABLET PO (08:56)
--- NOTE | 2022-02-20 09:47 | PT.IIE ---
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) Surgery Performed Operation Date: 02/19/22 11:15 Actual Procedures p Total Hip Arthroplasty(Left) - Taty Schilling MD Surgical History (Last Reviewed 02/20/22 @ 08:30 by Juju Diaz PA-C) History of total right hip replacement (09/04/21) Hx of dilation and curettage S/P left unicompartmental knee replacement (2020) Medical History (Last Reviewed 02/20/22 @ 08:30 by Juju Diaz PA-C) Anesthesia Anxiety about health Asthma Atrial flutter (2017) DVT (deep venous thrombosis) (2020) History of cardioversion (2017) Mild sleep apnea Pre-diabetes Seasonal allergies SVT (supraventricular tachycardia) Physical Therapy Inpatient Evaluation/Re-Eval M1 PT/OT-IP Prior Functional Status Start: 02/20/22 07:30 Freq: NEEDED Status: Active Protocol: Document 02/20/22 09:41 [facility] (Rec: 02/20/22 09:47 [facility] [id number]) Medical Review Prior Functional Status Medical History Reviewed Yes Diet/Fluid Consistency Regular Communication WNL Mobility and Gait was walking w/a cane d/t L hip pain Activities of Daily Living and IADL's Indep Social History Household Members none Living Arrangements House Number of Floors (Floors) One Floor Number of Stairs To Enter/Railing? 1 CARLEE and has sunken living room Home Environment High Toilet,Walk in Shower,Tub /Shower Home Equipment Front Wheel Walker,Straight Cane,Bedside Commode,Shower Seat without Backrest,Long Handled Sponge,Long Handled Shoe Horn,Monitor Technician,Sock Aid Additional Social History Comment friend will stay until Friday and then son will stay for a few more days after M2 PT-IP Current Condition Start: 02/20/22 07:30 Freq: NEEDED Status: Active Protocol: Document 02/20/22 09:41 [facility] (Rec: 02/20/22 09:47 [facility] [id number]) Physical Therapy Current Condition Current Condition Evaluation Date 02/20/22 Treatment Diagnosis L post GEETA Onset Date 02/19/22 M3 PT-IP Subjective Start: 02/20/22 07:30 Freq: NEEDED Status: Active Protocol: Document 02/20/22 09:41 [facility] (Rec: 02/20/22 09:47 [facility] [id number]) Subjective Physical Therapy Visit Type Type Initial Evaluation Visit Start Time 09:08 Visit Stop Time 09:38 Total Visit Minutes 30 Number of FINANCIAL SOLUTIONS ADVISOR Visits 0 Physical Therapy Visit Comments Patient Goals go home today Therapy Pain Assessment Pain When Pain Assessed During Mobility Pain Present Pain Present Pain Reported M4 PT-IP Mobility and Gait Start: 02/20/22 07:30 Freq: NEEDED Status: Active Protocol: Document 02/20/22 09:41 [facility] (Rec: 02/20/22 09:47 [facility] [id number]) PT-Bed Mobility Assessment Supine to Sit Supine to Sit Standby Assistance,Bedrails Scooting Scooting to Edge of Bed Independent PT-Transfer Assessment Sit to and From Stand Sit to and from Stand Standby Assistance,Use of Upper Extremities Equipment Transfer Assistive Device Gait Belt,Front Wheeled Walker Orthotic/Prosthetic Devices or Brace: No Comments Mobility Comments supine to sit SBA w/use of bed rail (pt has bed rail at home ). Sit to stand SBA and pt amb SBA w/FWW 250ft to stairs then did up and down platform step SBA w/FWW w/min cues then amb SBA 250ft w/fww backt o room. Pt then sat in chair indep w/o cues. Pt reviewed verbally precautions & exercises & was able to recite to PT indep. Pt left w/call light in reach. Gait Assessment Gait Gait Assistance Required: Standby Assistance Distance (Feet) 500 Able to Maintain Weight Bearing Status Yes During Gait Assistive Devices Assistive Device Gait Belt Orthotic/Prosthetic Devices or Brace: No Gait Deviations General Gait Pattern Antalgic,Flexed Trunk Factors Limiting Gait Function Factors Limiting Gait Function Decreased Strength,Pain Stair Climbing Assessment Evaluation Level of Assist On Stairs Standby Assistance Devices Stair Climbing Assistive Devices Front Wheel Walker Technique/Endurance Stair Climbing Direction Ascend and Descend Stair Climbing Technique Step to Step Number of Steps Climbed 1 Query Text: PT-Balance Assessment Sitting Balance and Reactions Static Sitting Balance Ability Normal Dynamic Sitting Balance Ability Normal Standing Balance and Reactions Static Standing Balance Ability Good Dynamic Standing Balance Ability Good Device Used FWW M5 PT-IP Objective Assessments Start: 02/20/22 07:30 Freq: NEEDED Status: Active Protocol: Document 02/20/22 09:41 [facility] (Rec: 02/20/22 09:47 [facility] [id number]) Orientation Orientation/Cognition Level of Alertness Alert Language Function Ability No Deficits Noted Safety Awareness Understands Safety Issues Memory Description No Deficits Noted Gross Range of Motion Lower Extremity ROM Assessment Left Impaired Strength Lower Extremity Strength Assessment Left Impaired M6 PT-IP Treatment Start: 02/20/22 07:30 Freq: NEEDED Status: Active Protocol: Document 02/20/22:41 [facility] (Rec: 02/20/22 09:47 [facility] [id number]) Physical Therapy Treatment Education Education Provided Precautions,Weight Bearing Status,Post-Op Packet,Safety M7 PT-IP Assessment and Plan Start: 02/20/22 07:30 Freq: NEEDED Status: Active Protocol: Document 02/20/22:41 [facility] (Rec: 02/20/22 09:47 [facility] [id number]) PT Summary Assessment and Plan Potential Rehabilitation Potential Excellent Status of Condition at Evaluation Stable Summary Impairments Pain,ROM,Strength,Balance,Bed Mobility,Transfers,Gait, Activity Tolerance Assessment Summary Pt presents day 1 s/p L post GEETA and is prepared at home and demonstrated good mobility today w/PT. She was SBA to indep w/all activities and required little cueing and understood saftey concerns. Pt cleared by PT for mobility component for DC home. Frequency of Treatment Frequency Of Treatment Discharge Treatment Plan Physical Therapy Treatment Plan Bed Mobility Training,Transfer Training,Gait Training, Therapeutic Exercise,Balance Retraining,Post Op Education, Discharge Planning,Hot or Cold Pack,Neuromuscular Re-ed, Manual Therapy Precautions Posterior Hip Precautions No Hip Flexion > 90 degrees,No Hip Internal Rotation,No Hip Adduction Weight Bearing Status Weight Bearing Status Weight Bear as Tolerated Recommendations To Nursing Amount of Assist Needed Standby Assistance Discharge Recommendations PT Discharge Recommendations Home with Assistance, Outpatient PT Transportation Needs at Discharge Private Vehicle
--- NOTE | 2022-02-20 10:17 | PC.NURSE ---
Discharge instructions given to patient, L hip drain removed as ordered, 50cc Sangenous drainage noted, small dry dressing applied over drain site. Surgical dressing intact with several small areas of old drainage noted. Instructed to leave dressing in place until MD appointment 03/04.
[2022-02-20] MEDS: OXYCODONE IR 10 MG TABLET PO (10:27)
--- NOTE | 2022-02-20 10:55 | CM.IDA ---
Initial DCP Assessment Patient is 61 y/o female who was admitted to after Left GEETA surgery by Dr. Schilling. Patient's PCP is Nyla Mithcell, Patient has [facility]. ASSESSMENT SERVICES MANAGER attempts to meet with patient this morning, but patient d/c'd to home shortly after rounds and after passing PT eval. Patient has post surgery f/u scheduled for 03/04/22. Per RN, there were no concerns upon d/c and patient has hx of post surgery recovery and rehabilitation at home. Plan: Patient d/c'd to home via POV with post surgery f/u RENETTA Mccann Discharge Planning/Care Management Document 02/20/22 10:54 LN (Rec: 02/20/22 10:55 LN [id number]) Discharge Planning Assessment Assigned Customer Energy Specialist RENETTA Tyler Advance Directives? Yes Advance Directives on File No History Provided By Medical Record Has Patient been admitted in last 30 No days? Prior Living Arrangements House Household Members none Type of transporation used prior to Drives own vehicle admit Comment drives at baseline Independent with ADL's Yes Is patient alert and oriented? Yes Discharge Plan Home Transportation Arrangement Patient received ride home with friend Please Provide Date Initial DC 02/20/22 Assessment Was Performed Pre-Anesthesia Assessment Start: 02/11/22 09:46 Freq: Status: Active Protocol: Document 02/12/22 07:43 CAB (Rec: 02/11/22 10:17 CAB [id number]) Pre-Anesthesia Assessment Preferred Name Rhiannon Devlin Patient Information Reviewed Via Phone Assessment Assessment Completed With Patient Comment Outsde labs done/not here, COVID screen @ 02/18/22 Primary Care Provider Nyla Mitchell Seen Specialist in Last 12 Months Yes Specialist Seen High Heel Builder,Orthopedist Primary Language Panamanian Preferred Language Panamanian Boring Machine Operator Required No Height 172.72 cm Weight 97.976 kg Body Mass Index (BMI) 32.8 Hearing Ability Normal Visual Assist Magnifying Glass Dentition Type Teeth, Natural Present Barriers to Learning None Other Aids Yes: CPAP Hx Anesthesia Reactions Yes: Severe PONV I'm a slow wake up from anesthesia Hx Family Anesthesia Reaction Yes: Sons - one stopped breathing, one post-op vomiting Hx Malignant Hyperthermia No Hx Blood Transfusions No Hx Blood Transfusion Reaction No Anesthesia Review Requested No Fast Food Cashier No alcohol intake current alcohol intake frequency holidays/special occasions only Smoking Status Never smoker Substance Use Type does not use Pain Present Pain Reported Musculoskeletal Symptoms Abnormal Gait,Difficulty Walking,Joint Pain History of Falling (Recent or History of No ) Patient is completely paralyzed or No completely immobile Prosthesis or Orthotic Device Cane Is patient on oxygen? No Does patient have STAUFFER/SOB No Hx Sleep Apnea Yes CPAP/BIPAP use prescribed and used routinely Will Bring CPAP/BIPAP DOS Yes Currently Taking a Beta Destiny No Can You Climb a Flight of Stairs Without Yes SOB Hx Chest Pain No Hx SOB No Hx Syncope or Dizziness No Anti-Coagulant Therapy No Has a High Heel Builder Yes: Visit 01/14/[address] Ángel Cho Cardiac Testing No Hx Pacemaker/ICD No Pacemaker Rep Required? No Comment Cardiac records scanned Diet Type At Home Regular Dysphagia No Gastrointestinal Symptoms None Bladder Pattern Frequency,Incontinent,Urgency Urinary Catheter Present No Hx Urinary Self Catheterization No Diabetes No Patient No Lactating No Hx Drug Resistant Organism No Presence of External or Internal Medical Yes: Left knee, CPAP, right Devices hip Have you had any close contact with No someone diagnosed with COVID-19? Received a COVID vaccine? Yes Received all doses? No Marital Status Single Lives With none Current Living Arrangements House Number of Floors (Floors) One Floor Support System Friend(s) Does the Patient Have Assistance After Yes: Mallory(friend) will stay w Surgery /pt as DC to assist with care Patient Discharge Plan Description Return Home Comment Pt advised overnight length of stay per surgeon Feels Safe in Current Environment Yes Been Physically Hurt or Threatened By a No Person in Current Environment Do you have thoughts of harming yourself None or others? Are you currently considering suicide? No Do you have a plan to hurt yourself or No Plan others? Do You Have Any Spiritual Beliefs That No May Affect Your HC Choices? Do You Have Any Cultural Practices That No May Affect Your HC Choices? Who Can We Speak to About Patient's Care Family, friends Identifying Code for Release of Patient Declines to issue Information Health Care Proxy/Next of Kin Mallory (friend) Health Care Proxy Emergency Contact Name Mallory (friend) Emergency Contact Advance Directives? Yes Advance Directives on File No Requested Patient Bring Advanced Yes Directives DOS Power of Safety And Security Manager Yes Power of Safety And Security Manager Name Mallory (friend) Power of Safety And Security Manager PAC Instructions Bring CPAP/BIPAP,Do not shave/ clip surgical site,Durable medical equipment,Medications to take/avoid,Nasal antibiotic ,No ETOH/petroleum product on skin DOS,NPO,Post-op transportation,Sensory aids, Sturdy shoes/comfortable clothes,Do not bring valuables and remove jewelry
== END 2022-02-20 11:00 | disposition home or self-care (01) ==
LOC: OR 09:34 → AC 09:36 → ICU 13:45
PROVIDERS: PCP Nurse Practitioner Family; Referring Provider Orthopaedic Surgery; Visit Provider Orthopaedic Surgery
PROC: 0SRB0JZ Replacement of Left Hip Joint with Synthetic Substitute, Open Approach (ICD-10-PCS; CPT 27130; principal; 2022-02-19 11:15)
DX: M16.12 Unilateral primary osteoarthritis, left hip (principal); M87.052 Idiopathic aseptic necrosis of left femur; J45.909 Unspecified asthma, uncomplicated
CPT/HCPCS: 27130; 36415; 72170; 73502; 85014; 85018; 87797; 97161; C1776; C9290; J0690; J1100; J1170; J2405; J2704; J3010